=== PATIENT | male | born 1990 | race Caucasian/White ===

== ENCOUNTER → 2018-04-06 | Outpatient (CLI) | payer OTHER ==
--- NOTE | 2018-04-06 16:54 | DIAGNOSTIC IMAGING REPORT ---
L RIBS UNILATERAL WITH PA CHEST CLINICAL HISTORY: LEFT RIB PAIN pain. Trauma. COMPARISON STUDY: None FINDINGS: Nondisplaced cortical fracture anterior margin of the left fifth and sixth ribs. Remaining ribs are unremarkable. No evidence pneumothorax. IMPRESSION: Nondisplaced cortical fracture anterior margin left fifth and sixth ribs. The lungs are clear. The above report was generated using voice recognition software. It may contain grammatical, syntax or spelling errors. Electronically signed by: Edis Best M.D. 04/06/2018 4:53 PM Dictated Date/Time: 04/06/2018 4:51 PM
== END | disposition home or self-care (01) ==
LOC: C.RAD1850 16:15
PROVIDERS: ATTEND Internal Medicine
DX: R07.81 Pleurodynia (principal); S22.42XA Multiple fractures of ribs, left side, initial encounter for closed fracture; X58.XXXA Exposure to other specified factors, initial encounter